=== PATIENT | female | born 1975 | race Caucasian/White ===

== ENCOUNTER → 2017-08-26 | Outpatient (CLI) | payer OTHER ==
[~2017-08-26] MED LIST: ADULT LOW DOSE81 MG PO; AMITRIPTYLINE H10 M3 PO; AMITRIPTYLINE H25 M2 PO; ASPIRIN325 PO; ATIVAN0.5 MG PO; AZTREONAM2 GM IVPB; BENADRYL25 MG PO; CIPRO500 MG PO; COLACE100 MG PO; COUMADIN7.5 MG PO; CRINONE1.45 G1 VG; DITROPAN XL10 M1; DITROPAN XL15 MG PO; ENOXAPARIN80 MG/0.8 SQ; EPIPEN 2-P0.3 MG/0.3 IM; EPIPEN0.3 MG/0.3; FIBERCON625 M1 PO; FLOMAX0.4 MG PO; HYDROCODONE-APA1 TA1 PO; IBUPROFEN 800800 M1 PO; IMITREX 25 MG T25 M1 PO; IMITREX 50 MG T50 MG PO; LOVENOX80 MG/0.8 SQ; MACRODANTIN100 MG; METHOCARBAMOL500 M2 PO; MIRALAX17 GM PO; NITROFURANTOIN50 M2 PO; NORCO 5-325 TA1 EACH PO; ONDANSETRON HCL4 M2 PO; OXYIR5 MG PO; PERCOCET PO; PHENAZOPYRIDIN200 M2 PO; PHENERGAN 25 MG25 M1 PO; PROLOPRIM100 MG PO; PROPANOLOL PO; ROBAXIN500 MG; TESSALON PERLE100 MG PO; TESTOSTERONE; TESTOSTERONE2.5 GM TD; TOPAMAX50 MG PO; TRAMADOL 50 MG50 MG PO; VALIUM5 MG PO; VIVELLE-DOT1 EAC1; VOLTAREN GEL 1100 GM TOP; ZOFRAN ODT4 MG PO; ZOFRAN4 MG PO; [UNRECOGNIZED DRUG - OTHER]
--- NOTE | 2017-08-28 09:59 | PAINCON ---
[address] [address] PAIN MANAGEMENT CONSULTATION Name: JEREMIAH WOODS Room: [facility] JUSTINO Nava#: [id number] Admission: 08/26/17 Attend Phys: Ashlie German Discharge: Date of : 75 Report #: [id number] THIS REPORT FOR: //name// CC: Ajit Leone DATE OF SERVICE: 08/26/2017 HISTORY OF PRESENT ILLNESS: The patient is a very pleasant 41-year-old female being treated for symptomatic cervical radiculopathy. Significant comorbidity includes chronic kidney disease, stage 3, contraindicating nonsteroidal anti-inflammatory medications. The patient has had good relief with epidural injections, 09/24 and 10/08 and 10/22. Symptoms began to recur. She had an injection on 03/18 and again on 04/22. Radicular symptoms improved somewhat, but she is having ongoing daily headaches. I referred her for consideration for Botox injections while she has chronic daily headaches and would be a good candidate for Botox. 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 She does return to the pain clinic today with ongoing right cervical radicular symptoms. Pain in the right neck radiating to the clavicle, pain in the deltoid to the posterior aspect of the upper arm in the triceps area. Subjective weakness in the right arm with a dull ache that is fairly constant in the arm. PHYSICAL EXAMINATION: GENERAL: Shows pleasant 41-year-old female. VITAL SIGNS: BMI is 29 kilograms per meter squared. Blood pressor or pressure 102/71, pulse 69, respirations of 16. MUSCULOSKELETAL: Cervical range of motion is limited with positive Lhermitte's. Upper extremity strength shows decreased right deltoid strength about 3/5, all else is about 4/5. Decreased right hand grasp compared to the left. Tinel's is negative. Deep tendon reflexes are generally preserved, though triceps reflex is difficult to elicit bilaterally. IMAGING: We reviewed her MRI from 09/17/2016, there is a disk desiccation at C5-C6 with a broad based posterior disk bulge and superimposed right paracentral or right lateral recess disk extrusion combination resulting in severe right lateral recess stenosis and moderate right neural foraminal stenosis. ASSESSMENT: Symptomatic cervical radiculopathy, right C6 distribution by clinical exam and history. RECOMMENDATIONS: I had a long [place] [address] PAIN MANAGEMENT CONSULTATION Name: JEREMIAH WOODS [id number] Admission: 08/26/17 Attend Phys: Ashlie German Discharge: Date of : 75 Report #: [id number] therapeutic options. 1. 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 I suspect that they will not allow it as there is still 6-7% systemic absorption and the patient does have tenuous renal function. 2. Cervical epidural injection today to help with ongoing cervical radicular symptoms. 3. We will refer back to Neurosurgery. She had prior seen Dr. Josh Mullen greater than a year ago in consultation. Due to her kidney issues and acute inflammation of the cervical spine, they had elected to postpone interventional therapy. Given that Dr. Mullen is no longer in the [facility], we have elected to refer the patient to [facility] for a second opinion regarding surgery. ASSESSMENT: Symptomatic cervical radiculopathy. PROCEDURE: Cervical epidural steroid injection under fluoroscopy. PROCEDURE NOTE: After written and informed consent was obtained including risk of dural puncture, spinal cord trauma, paralysis and increased pain, the patient was taken to the fluoroscopy suite and placed in the prone position, with appropriate abdominal bolstering, neck was flexed, palms under the thighs. Skin was prepped with ChloraPrep. Sterile draping was applied. Skin wheal with 1% Xylocaine was raised. A 22-gauge 3-1/2 inch epidural Tuohy needle was placed via a midline approach at the C7-T1 interspace, advanced under biplanar fluoroscopy using continuous loss of resistance. With appropriate loss of resistance at the expected depth on lateral view, the glass loss of resistance syringe was disconnected. A low volume extension tubing was connected to the needle and a 5 mL syringe. Negative aspiration for cerebrospinal fluid or blood was noted. A 1 mL of Omnipaque was injected which showed spread within the epidural space on biplanar fluoroscopy. This was followed with 80 mg of triamcinolone plus 1 mL of 1.5% preservative Xylocaine. Needle was withdrawn to the interspinous ligament, 0.5 mL of Xylocaine was used to flush the needle. The needle was then completely withdrawn. The area was cleansed. Band-Aid was applied. The patient was allowed to move off the procedure table and ambulated to the recovery room, monitored for an appropriate period of time, discharged in good and stable condition. Follow up in 4 weeks for reevaluation. <ELECTRONICALLY SIGNED> By: Mane Leone DO 08/28/17 0959 1310 0059Mane Leone DO /bia
== END | disposition home or self-care (01) ==
LOC: M.PC 02:36
DX: M54.12 Radiculopathy, cervical region (principal); N18.3 Chronic kidney disease, stage 3 (moderate); Z88.2 Allergy status to sulfonamides; Z88.0 Allergy status to penicillin; Z88.8 Allergy status to other drugs, medicaments and biological substances

== ENCOUNTER → 2017-09-08 | Outpatient (CLI) | payer OTHER ==
[2017-09-08 15:16] LABS: ALBUMIN 3.8 g/dL (3.4-5.0); CALCIUM 8.7 mg/dL (8.5-10.1); CREATININE 1.3 mg/dL (0.6-1.3); POTASSIUM 3.7 mmol/L (3.5-5.1); TOTAL BILIRUBIN 0.4 mg/dL (<0.1-1.0); TOTAL PROTEIN 7.4 g/dL (6.4-8.2)
== END ==
LOC: M.CT 14:28
PROVIDERS: General Practice
DX: N10 Acute pyelonephritis (principal); R79.89 Other specified abnormal findings of blood chemistry

== ENCOUNTER 2017-09-11 12:33 | Inpatient (IN) | payer OTHER ==
[~2017-09-11] VITALS: Ht 167.6 cm; Wt 84.8 kg
[~2017-09-11 12:33] MED LIST changes: -AZTREONAM2 GM IVPB; -PERCOCET PO; -TESSALON PERLE100 MG PO; -ZOFRAN ODT4 MG PO
[2017-09-11 13:12] VITALS: BP 135/87
[2017-09-11] MEDS ORDERED: CIPRO500 MG PO (13:15)
[2017-09-11] MEDS ORDERED: TRAMADOL 50 MG50 MG PO (13:15)
[2017-09-11 13:39] LABS: URINE BILIRUBIN NEGATIVE (Negative); URINE BLOOD 1+ (Negative); URINE CLARITY CLEAR; URINE COLOR YELLOW; URINE GLUCOSE-RANDOM NEGATIVE (Negative); URINE KETONES NEGATIVE (Negative); URINE LEUKOCYTES-REFLEX TRACE (Negative); URINE NITRITE-REFLEX NEGATIVE (Negative); URINE PROTEIN NEGATIVE (Negative); URINE UROBILINOGEN 0.2 E.U./dl (0.2-1.0)
[2017-09-11 13:42] LABS: ABSOLUTE BASOPHILS 0.1 thou/uL (0.0-0.2); ABSOLUTE EOSINOPHILS 0.1 thou/uL (0.0-0.7); ABSOLUTE LYMPHOCYTES 1.6 thou/uL (0.8-5.3); ABSOLUTE MONOCYTES 0.5 thou/uL (0.0-1.2); ABSOLUTE NEUTROPHILS 8.5 thou/uL (1.6-8.1); EOSINOPHILS 0.9 %; HEMATOCRIT 42.5 % (37.0-47.0); HEMOGLOBIN 14.1 gm/dL (12.0-15.0); LYMPHOCYTES 14.8 %; MCH 30.1 pg (26.0-34.0); MCHC 33.2 g/dL (28.0-37.0); MCV 90.6 fL (80.0-100.0); MONOCYTES 4.9 %; MPV 7.7 fl. (7.2-11.1); NUCLEATED RBCS 0 /100WBC; PLATELET COUNT* 325 thou/uL (150-400); POLYS 78.4 %; RBC 4.68 mil/uL (4.20-5.00); WBC 10.8 thou/uL (4.0-11.0)
[2017-09-11 13:51] LABS: CASTS None Seen /LPF (None Seen); CRYSTALS None Seen /LPF (None Seen); MUCUS None Seen strn/LPF (None Seen); SQUAMOUS 4-10 Moderate /LPF (0-3); URINE RBC 3-10 Few /HPF (0-2); URINE WBC-REFLEX 6-15 Few /HPF (0-5)
[2017-09-11 13:59] LABS: ANION GAP 6 mmol/L (7-16); BUN 22 mg/dL (7-18); CALCIUM 8.5 mg/dL (8.5-10.1); CHLORIDE 104 mmol/L (98-107); CO2 30 mmol/L (21-32); CREATININE 1.4 mg/dL (0.6-1.3); GLUCOSE 105 mg/dL (70-99); POTASSIUM 3.7 mmol/L (3.5-5.1); SODIUM 140 mmol/L (136-145)
[2017-09-11 14:06] LABS: ALBUMIN 3.9 g/dL (3.4-5.0); ALKALINE PHOSPHATASE 60 U/L (46-116); LIPASE 325 U/L (73-393); SGOT 19 U/L (15-37); SGPT 27 U/L (30-65); TOTAL BILIRUBIN 0.5 mg/dL (<0.1-1.0); TOTAL PROTEIN 7.6 g/dL (6.4-8.2); TROPONIN-I LEVEL <0.06 ng/mL (<0.06)
[2017-09-11 15:21] VITALS: BP 111/63
[2017-09-11 16:00] VITALS: BP 128/85
[2017-09-11 20:00] VITALS: BP 107/66
[2017-09-12 00:19] VITALS: BP 111/63
[2017-09-12 07:09] LABS: HEMATOCRIT 41.1 % (37.0-47.0); HEMOGLOBIN 13.6 gm/dL (12.0-15.0); MCH 29.9 pg (26.0-34.0); MCV 90.6 fL (80.0-100.0); MPV 7.5 fl. (7.2-11.1); RBC 4.54 mil/uL (4.20-5.00); WBC 6.1 thou/uL (4.0-11.0)
[2017-09-12 07:15] LABS: CALCIUM 8.3 mg/dL (8.5-10.1); CREATININE 1.3 mg/dL (0.6-1.3); MAGNESIUM 2.2 mg/dL (1.8-2.4); POTASSIUM 4.3 mmol/L (3.5-5.1)
[2017-09-12 08:00] VITALS: BP 98/64
[2017-09-12 20:10] VITALS: BP 97/55
[2017-09-13 00:13] VITALS: BP 96/55
[2017-09-13 08:00] VITALS: BP 104/65
--- NOTE | 2017-09-13 10:00 | CON ---
[address] [address] CONSULTATION Name: JEREMIAH WOODS Room: [address] M.R.#: [id number] Admission: 09/11/17 Attend Phys: Ken Tao MD Discharge: Date of : 75 Report #: [id number] THIS REPORT FOR: //name// CC: Ken Rapp DATE OF SERVICE: 09/12/2017 INFECTIOUS DISEASE CONSULTATION ATTENDING PHYSICIAN: Dr. Tao REASON FOR EVALUATION: Complicated urinary tract infection refractory to outpatient therapy, also has 1-2 week history of respiratory tract symptoms primarily nonproductive cough associated pharyngitis. HISTORY OF PRESENT ILLNESS: Chart reviewed, the patient examined. 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 She had ongoing issues with complicated urinary tract infections. She developed right-sided flank pain over the course of the last 8-10 days prior to admission, was evaluated and felt to have a urinary tract infection. This was in association with respiratory tract illness, which preceded this with sore throat, rhinorrhea, congestion and headache. On at least 2 occasions had nasopharyngeal swabs negative for influenza A and B. She was started on Cipro and treated for several days without improvement. It is notable she has multiple drug hypersensitivities including type 1 particularly to beta-lactams, I believe. Also, trimethoprim sulfa. On admission, was found to have temperature elevation. She was given a dose of gentamicin. Overall, she feels marginally better today, still has right flank pain, persistent cough and marginal p.o. intake. ALLERGIES: NOTED ABOVE IN ADDITION TO THE PENICILLIN, CEPHALOSPORINS, SULFA, NONSTEROIDALS, CYCLOBENZAPRINE, HYDROMORPHONE, OXYCODONE, MEPERIDINE AND VANCOMYCIN. CURRENT MEDICATIONS: Include enoxaparin, promethazine as needed, tramadol, fentanyl, given a dose of gentamicin and a single dose of IV ciprofloxacin. PAST MEDICAL HISTORY: As described above, has previous nephrectomy in 12/2015, hysterectomy, oophorectomy, appendectomy. SOCIAL HISTORY: Nonsmoker, no ethanol. FAMILY HISTORY: [place] [address] CONSULTATION Name: MARRYPADMINIJEREMIAH J Room: [address]#: [id number] Admission: 09/11/17 Attend Phys: Ken Tao MD Discharge: Date of : 75 Report #: [id number] REVIEW OF SYSTEMS: As above. PHYSICAL EXAMINATION: GENERAL: She appears ill, not overtly toxic. She does have paroxysms of coughing that are nonproductive during the evaluation. She is not encephalopathic. VITAL SIGNS: Temperature 98.4, pulse 64, respirations 14, blood pressure 98/64. SKIN: Warm. No appreciated rashes. HEENT: Otherwise, unremarkable. NECK: Supple. LUNGS: Somewhat diminished overall, a few crackles at the bases. HEART: Regular. I do not appreciate a murmur. ABDOMEN: Generally soft. There are no overt peritoneal signs. Does have palpable right flank tenderness. GENITOURINARY: Deferred. RECTAL: Deferred. LABORATORY DATA: Blood cultures sterile thus far. Urine culture is pending. Lactic acid is 0.4. Electrolytes: Sodium 143, potassium 4.3, chloride 106, bicarbonate is 30, BUN and creatinine 15 and 1.3, glucose of 93. Estimated GFR of 45. White count 6.1, H and H 13.6 and 41.1, platelets of 268. Sodium 140, potassium 3.7, chloride 104, bicarbonate is 30 on admission. Lipase of 325. LFTs unremarkable. Albumin of 39, total protein 7.6. Urinalysis showed 6-15 white cells, no casts, 10-30 bacteria. ASSESSMENT: Complicated urinary tract infection. The patient has multiple antibiotic hypersensitivities. We will empirically dose at this point, await culture results. At this point, she is not overtly unstable. We will go ahead and get a chest x-ray as well. Discussed these issues. Suspect it is probably viral, although I cannot be certain. We will check a respiratory viral panel. Discussed with the patient who voices understanding. <ELECTRONICALLY SIGNED> By: Mitch Guzman MD 09/13/17 1000 [id number] 0049Mitch Guzman MD /nt
[2017-09-13 20:00] VITALS: BP 115/63
[2017-09-14 00:15] VITALS: BP 104/66
[2017-09-14 08:30] VITALS: BP 110/75
[2017-09-14 17:30] VITALS: BP 109/67
[2017-09-14 20:00] VITALS: BP 120/68
[2017-09-15 04:27] VITALS: BP 102/61
[2017-09-15 08:10] VITALS: BP 107/70
[2017-09-15 14:47] LABS: URINE BILIRUBIN NEGATIVE (Negative); URINE BLOOD TRACE (Negative); URINE CLARITY CLEAR; URINE COLOR STRAW; URINE GLUCOSE-RANDOM NEGATIVE (Negative); URINE KETONES NEGATIVE (Negative); URINE LEUKOCYTES-REFLEX NEGATIVE (Negative); URINE NITRITE-REFLEX NEGATIVE (Negative); URINE PROTEIN NEGATIVE (Negative); URINE SPECIFIC GRAVITY <= 1.005 (1.005-1.030); URINE UROBILINOGEN 0.2 E.U./dl (0.2-1.0)
[2017-09-15 16:16] VITALS: BP 106/56
[2017-09-15 19:47] VITALS: BP 106/56
[2017-09-15 20:00] VITALS: BP 109/69
[2017-09-16] VITALS: BP 106/66
[2017-09-16 02:06] LABS: ADENOVIRUS Negative (Negative); INFLUENZA A Negative (Negative); INFLUENZA B Negative (Negative); METAPNEUMOVIRUS Negative (Negative); PARAINFLUENZA 1 Negative (Negative); PARAINFLUENZA 2 Negative (Negative); PARAINFLUENZA 3 Negative (Negative); RHINOVIRUS Negative (Negative); RSV A Negative (Negative); RSV B Negative (Negative)
[2017-09-16 04:00] VITALS: BP 106/66
[2017-09-16 07:30] VITALS: BP 159/92
[2017-09-16 08:27] LABS: HEMATOCRIT 37.4 % (37.0-47.0); HEMOGLOBIN 12.4 gm/dL (12.0-15.0); MCH 30.4 pg (26.0-34.0); MCHC 33.1 g/dL (28.0-37.0); MCV 91.9 fL (80.0-100.0); MPV 8.4 fl. (7.2-11.1); RBC 4.07 mil/uL (4.20-5.00); RDW-CV 14.2 % (10.5-14.5); WBC 5.6 thou/uL (4.0-11.0)
[2017-09-16 08:28] LABS: CALCIUM 8.2 mg/dL (8.5-10.1); CREATININE 1.4 mg/dL (0.6-1.3)
[2017-09-16 12:00] VITALS: BP 114/92
[2017-09-16] MEDS ORDERED: TESSALON PERLE100 MG PO (13:14)
[2017-09-16] MEDS ORDERED: ZOFRAN ODT4 MG PO (13:14)
[2017-09-16] MEDS ORDERED: TRAMADOL 50 MG50 MG PO (13:14)
[2017-09-16] MEDS ORDERED: PHENERGAN 25 MG25 M1 PO (13:14)
[2017-09-16 13:35] VITALS: BP 106/56
[2017-09-16] MEDS ORDERED: PERCOCET PO (14:10)
[2017-09-16] MEDS ORDERED: AZTREONAM2 GM IVPB (14:18)
== END 2017-09-16 15:27 | disposition home or self-care (01) | DRG 690 ==
LOC: M.ERS 12:33 → M.TBA-ER 14:49 → M.2W 14:49
PROVIDERS: Emergency Medicine Emergency Medical Services; Internal Medicine; Specialist; ADMIT Internal Medicine
PROC: B5181ZA Fluoroscopy of Superior Vena Cava using Low Osmolar Contrast, Guidance (ICD-10-PCS; principal; 2017-09-15)
PROC: B548ZZA Ultrasonography of Superior Vena Cava, Guidance (ICD-10-PCS; principal; 2017-09-15)
PROC: 02HV33Z Insertion of Infusion Device into Superior Vena Cava, Percutaneous Approach (ICD-10-PCS; principal; 2017-09-15)
DX: N12 Tubulo-interstitial nephritis, not specified as acute or chronic (principal); N18.3 Chronic kidney disease, stage 3 (moderate); J06.9 Acute upper respiratory infection, unspecified; Z90.5 Acquired absence of kidney; Z86.711 Personal history of pulmonary embolism; Z90.49 Acquired absence of other specified parts of digestive tract; Z90.710 Acquired absence of both cervix and uterus; Z88.6 Allergy status to analgesic agent; Z88.1 Allergy status to other antibiotic agents; Z88.8 Allergy status to other drugs, medicaments and biological substances; Z79.899 Other long term (current) drug therapy; Z90.721 Acquired absence of ovaries, unilateral

== ENCOUNTER → 2017-09-25 | Outpatient (CLI) | payer OTHER ==
[~2017-09-25] MED LIST changes: +AZTREONAM2 GM IVPB; +PERCOCET PO; +TESSALON PERLE100 MG PO; +ZOFRAN ODT4 MG PO
[2017-09-25 10:11] LABS: URINE BILIRUBIN NEGATIVE (Negative); URINE BLOOD 1+ (Negative); URINE CLARITY CLEAR; URINE COLOR YELLOW; URINE GLUCOSE-RANDOM NEGATIVE (Negative); URINE KETONES NEGATIVE (Negative); URINE LEUKOCYTES-REFLEX NEGATIVE (Negative); URINE NITRITE-REFLEX NEGATIVE (Negative); URINE PROTEIN NEGATIVE (Negative); URINE SPECIFIC GRAVITY <= 1.005 (1.005-1.030); URINE UROBILINOGEN 0.2 E.U./dl (0.2-1.0)
[2017-09-25 10:19] LABS: BACTERIA-REFLEX 1-9 Few /HPF (None Seen); CASTS None Seen /LPF (None Seen); CRYSTALS None Seen /LPF (None Seen); MUCUS 0-3 Light strn/LPF (None Seen); SQUAMOUS 0-3 Few /LPF (0-3); URINE RBC 3-10 Few /HPF (0-2); URINE WBC-REFLEX 0-5 Rare /HPF (0-5)
== END ==
LOC: M.LAB 10:04
PROVIDERS: Specialist
DX: N39.0 Urinary tract infection, site not specified (principal)

== ENCOUNTER → 2017-10-02 | Outpatient (CLI) | payer OTHER | LOC: M.LAB 11:35 | DX: N39.0 Urinary tract infection, site not specified (principal) ==

== ENCOUNTER → 2017-10-09 | Outpatient (CLI) | payer OTHER ==
[2017-10-09 09:55] LABS: HEMATOCRIT 40.3 % (37.0-47.0); HEMOGLOBIN 13.5 gm/dL (12.0-15.0); MCH 30.3 pg (26.0-34.0); MCHC 33.5 g/dL (28.0-37.0); MCV 90.7 fL (80.0-100.0); MPV 7.5 fl. (7.2-11.1); RBC 4.45 mil/uL (4.20-5.00); RDW-CV 14.6 % (10.5-14.5); WBC 6.1 thou/uL (4.0-11.0)
[2017-10-09 10:03] LABS: CALCIUM 8.9 mg/dL (8.5-10.1); CREATININE 1.4 mg/dL (0.6-1.3); POTASSIUM 4.5 mmol/L (3.5-5.1)
[2017-10-09 10:08] LABS: ALBUMIN 3.5 g/dL (3.4-5.0); TOTAL BILIRUBIN 0.2 mg/dL (<0.1-1.0); TOTAL PROTEIN 7.5 g/dL (6.4-8.2)
== END ==
LOC: M.LAB 08:30 → M.CT 09:30
PROVIDERS: Specialist
DX: N39.0 Urinary tract infection, site not specified (principal); N28.89 Other specified disorders of kidney and ureter; K42.9 Umbilical hernia without obstruction or gangrene; Z90.5 Acquired absence of kidney; Z16.35 Resistance to multiple antimicrobial drugs

== ENCOUNTER → 2017-11-03 | Outpatient (CLI) | payer OTHER ==
[2017-11-03 18:53] LABS: URINE BILIRUBIN NEGATIVE (Negative); URINE BLOOD 1+ (Negative); URINE CLARITY CLEAR; URINE COLOR STRAW; URINE GLUCOSE-RANDOM NEGATIVE (Negative); URINE KETONES NEGATIVE (Negative); URINE LEUKOCYTES NEGATIVE (Negative); URINE NITRITE NEGATIVE (Negative); URINE PROTEIN NEGATIVE (Negative); URINE SPECIFIC GRAVITY <= 1.005 (1.005-1.030); URINE UROBILINOGEN 0.2 E.U./dl (0.2-1.0)
[2017-11-03 19:06] LABS: BACTERIA None Seen /HPF (None Seen); CASTS None Seen /LPF (None Seen); MUCUS None Seen strn/LPF (None Seen); SQUAMOUS 0-3 Few /LPF (0-3); URINE RBC 0-2 Rare /HPF (0-2); URINE WBC None Seen /HPF (0-5)
[2017-11-03 19:07] LABS: CRYSTALS None Seen /LPF (None Seen)
== END ==
LOC: M.LAB 18:24
PROVIDERS: Specialist
DX: N39.0 Urinary tract infection, site not specified (principal)

== ENCOUNTER → 2017-11-23 | Outpatient (CLI) | payer OTHER | END | disposition home or self-care (01) | LOC: M.INT 10:54 | DX: Z45.2 Encounter for adjustment and management of vascular access device (principal); Z87.440 Personal history of urinary (tract) infections; Z87.09 Personal history of other diseases of the respiratory system; Z88.2 Allergy status to sulfonamides; Z88.0 Allergy status to penicillin; Z79.899 Other long term (current) drug therapy; Z79.891 Long term (current) use of opiate analgesic ==

== ENCOUNTER → 2017-12-03 | Outpatient (CLI) | payer OTHER ==
[2017-12-03 12:48] VITALS: BP 129/79
--- NOTE | 2017-12-28 12:50 | CARD ---
[address] [address] CARDIAC CATH REPORT Name: JEREMIAH WOODS [id number] Admission: 12/03/17 Attend Phys: Mayco Snow MD Discharge: Date of : 75 Report #: [id number] THIS REPORT FOR: //name// CC: Mayco Rapp PROCEDURE: Explantation of an implanted loop recorder. DESCRIPTION OF PROCEDURE: After informed consent was obtained, the patient was brought to the cardiac catheterization area. The chest wall was prepped and draped in sterile fashion. The location of the implanted loop recorder was determined by palpation. Local anesthesia was achieved with 1% lidocaine. An incision was made at the base of the loop recorder. The loop recorder was secured with a Melissa forceps and through the incision. Incision was then sealed with Dermabond. The patient tolerated the procedure well without complication. IMPRESSION: 1. Loop recorder in place for cardiac monitoring. 2. Successful explantation of implanted loop recorder without complications. <ELECTRONICALLY SIGNED> By: Mayco Snow MD, [facility] 12/28/17 1250 1805 0633[facility] Centerterry Snow MD, FACC /nt
== END | disposition home or self-care (01) ==
LOC: M.CL 12:38
DX: Z45.09 Encounter for adjustment and management of other cardiac device (principal); Z98.890 Other specified postprocedural states; Z79.899 Other long term (current) drug therapy; Z87.440 Personal history of urinary (tract) infections; Z88.2 Allergy status to sulfonamides; Z88.0 Allergy status to penicillin; Z79.891 Long term (current) use of opiate analgesic; Z90.710 Acquired absence of both cervix and uterus; Z90.49 Acquired absence of other specified parts of digestive tract; Z90.5 Acquired absence of kidney

== ENCOUNTER → 2018-01-05 | Outpatient (CLI) | payer OTHER ==
[2018-01-05 10:58] LABS: ABSOLUTE EOSINOPHILS 0.1 thou/uL (0.0-0.7); ABSOLUTE LYMPHOCYTES 1.4 thou/uL (0.8-5.3); ABSOLUTE MONOCYTES 0.5 thou/uL (0.0-1.2); ABSOLUTE NEUTROPHILS 3.3 thou/uL (1.6-8.1); BASOPHILS 0.7 %; EOSINOPHILS 1.4 %; HEMATOCRIT 41.7 % (37.0-47.0); HEMOGLOBIN 13.8 gm/dL (12.0-15.0); LYMPHOCYTES 26.2 %; MCH 30.1 pg (26.0-34.0); MCHC 33.1 g/dL (28.0-37.0); MCV 90.8 fL (80.0-100.0); MONOCYTES 8.9 %; MPV 7.9 fl. (7.2-11.1); NUCLEATED RBCS 0 /100WBC; PLATELET COUNT* 295 thou/uL (150-400); POLYS 62.8 %; RBC 4.59 mil/uL (4.20-5.00); RDW-CV 12.8 % (10.5-14.5); WBC 5.2 thou/uL (4.0-11.0)
[2018-01-05 17:09] LABS: TESTOSTERONE 137 ng/dL (8-48)
[2018-01-07 09:11] LABS: ANA INTERPRETATION Negative (Negative)
[2018-01-07 10:07] LABS: M-SPIKE Not Observed g/dL (Not Observed)
[2018-01-07 17:11] LABS: URINE PROTEIN (MG/DL) 4.5 mg/dL (Not Estab.)
== END ==
LOC: M.LAB 10:35
PROVIDERS: Obstetrics & Gynecology
DX: N95.1 Menopausal and female climacteric states (principal); R31.9 Hematuria, unspecified; R68.82 Decreased libido

== ENCOUNTER → 2018-01-12 | Outpatient (CLI) | payer OTHER ==
[2018-01-12 10:08] LABS: URINE BILIRUBIN NEGATIVE (Negative); URINE BLOOD 3+ (Negative); URINE CLARITY CLEAR; URINE COLOR YELLOW; URINE GLUCOSE-RANDOM NEGATIVE (Negative); URINE KETONES NEGATIVE (Negative); URINE LEUKOCYTES NEGATIVE (Negative); URINE NITRITE NEGATIVE (Negative); URINE PROTEIN NEGATIVE (Negative); URINE SPECIFIC GRAVITY <= 1.005 (1.005-1.030); URINE UROBILINOGEN 0.2 E.U./dl (0.2-1.0)
[2018-01-12 10:19] LABS: BACTERIA None Seen /HPF (None Seen); CASTS None Seen /LPF (None Seen); CRYSTALS None Seen /LPF (None Seen); MUCUS None Seen strn/LPF (None Seen); SQUAMOUS 0-3 Few /LPF (0-3); URINE WBC 0-5 Rare /HPF (0-5)
== END ==
LOC: M.LAB 09:56 → EDSTATUS 10:02 → M.LAB 10:02
PROVIDERS: Specialist
DX: R06.02 Shortness of breath (principal); R50.9 Fever, unspecified; R05 Cough

== ENCOUNTER → 2018-01-26 | Outpatient (CLI) | payer OTHER | LOC: M.RAD 13:59 | DX: Z12.31 Encounter for screening mammogram for malignant neoplasm of breast (principal) ==

== ENCOUNTER → 2018-05-07 | Outpatient (CLI) | payer OTHER ==
[2018-05-07 15:56] LABS: CREATININE 1.5 mg/dL (0.6-1.3)
== END ==
LOC: M.LAB 15:34
PROVIDERS: Nurse Practitioner Family
DX: M47.22 Other spondylosis with radiculopathy, cervical region (principal); R30.0 Dysuria; R10.9 Unspecified abdominal pain; Z79.899 Other long term (current) drug therapy

== ENCOUNTER → 2020-05-03 | Outpatient (CLI) | payer OTHER | LOC: M.MRI 13:30 | PROVIDERS: ATTEND Physical Medicine & Rehabilitation Sports Medicine | DX: M50.122 Cervical disc disorder at C5-C6 level with radiculopathy (principal); M47.22 Other spondylosis with radiculopathy, cervical region; M48.02 Spinal stenosis, cervical region ==

== ENCOUNTER → 2020-06-28 | Outpatient (CLI) | payer OTHER ==
--- NOTE | 2020-07-19 14:42 | PAINCON ---
[address] [address] PAIN MANAGEMENT CONSULTATION Name: JEREMIAH WOODS [facility] [id number] Admission: 06/28/20 Attend Phys: Keenan Lei MD Discharge: Date of : 75 Report #: [id number] THIS REPORT FOR: //name// cc: Mayco Carrera MD, Michael MD ~ CC: Mayco Lei DATE OF SERVICE: 06/28/2020 CHIEF COMPLAINT: Cervical pain. HISTORY: The patient is a 44-year-old female who has been referred to the Pain Clinic for evaluation. The patient has had surgery in the past. She was injured in 08/2016. She had a lifting and twisting injury and felt a popping sensation in her scapula. She has pain in the occipital area in the right ____ area with pain down to the right shoulder, hand and index finger and paresthesias in the ring and fifth fingers as well. The patient has undergone treatment with physical therapy in the past. She has tried other modalities including traction. Has had stage 3 chronic renal insufficiency and has been unable to take nonsteroidal anti-inflammatory medications. She has returned because of pain in the neck area. States that she has some herniated problems in C4-C5 and C5-C6. She would like to undergo a cervical epidural steroid injection. She is having pain that is radiating down the right side into her arm and involving her fingers. Describes the pain as constant with numbing and tingling sensation. She has had cervical epidural steroid injections in the past and found them beneficial. Notes that lifting and other activities of daily living can worsen her pain and discomfort. Has found that ice and medications are beneficial as well. Today, her pain is a 6/10 with a burning, shooting, cramping, throbbing, sharp, stabbing and discomfort. ALLERGIES: CEPHALOSPORINS, MEPERIDINE, MORPHINE, OXYCODONE, PENICILLIN, SULFA, TAPE, VANCOMYCIN, CYCLOBENZAPRINE, DILAUDID AND NONSTEROIDAL ANTI-INFLAMMATORY MEDICATIONS. PAST MEDICAL HISTORY: Acute renal failure, acute chest pain, dizziness, pyelonephritis, history of urinary tract infections, hydronephrosis or hydroureter. PAST SURGICAL HISTORY: Left nephrectomy, renal vein entrapment, failed stenting, hysterectomy 2001, appendectomy 2007, venous embolism ____ 2009, renal vein transplant 2009, ureteral stents, and nephrectomy 12/2015. 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 REVIEW OF SYSTEMS: Generally good health, weight changes, headaches, [place] [address] PAIN MANAGEMENT CONSULTATION Name: JEREMIAH WOODS Romana Room: [facility]#: [id number] Admission: 06/28/20 Attend Phys: Keenan Lei MD Discharge: Date of : 75 Report #: [id number] glasses, joint pain, weakness of muscles, muscle pain, back pain, recurrent headaches, numbness and tingling sensation and past transfusions. LABORATORY DATA: No new laboratory values available at the time of our interview. PAIN CLINIC ASSESSMENT AND PQRS: 1. History of osteoarthritis involving the neck for C4-C5, C5-C6 area. 2. Height 5 feet 6 inches, weight 174 pounds, BMI is 28.2. 3. Vital signs: Blood pressure 109/69, heart rate 63, respiratory rate 16, room air saturations 100%, and temperature 98.5. 4. Pain intensity 01/24. 5. Fall risk. The patient has not fallen in the last 3 months. 6. Blood thinner. The patient is not on a blood thinning medication. 7. Hypertension. The patient is not being treated for hypertension. 8. Opioids. The patient is not on her opioid regimen. 9. Risk assessment tool, low for opioid use. 10. Functional assessment tool reviewed. 11. Recreational drug use: The patient denies. 12. Tobacco: The patient denies. 13. Alcohol: The patient denies frequent use of alcohol. PHYSICAL EXAMINATION: GENERAL: The patient is a well-developed, well-nourished white female. Appears her stated age. She is alert and oriented x 3. Her affect is appropriate. Speech is fluent. HEENT: Normocephalic, atraumatic. Extraocular eye muscles intact. The patient has some pain and discomfort in her neck with pain radiating down the right side in the arm with numbness and tingling in her fingers. HEART: Regular. LUNGS: Clear. ABDOMEN: Nontender. EXTREMITIES: Upper extremity muscle strength judged to be 5-/5 on the left side and the patient notes some weakness on the right side with pain radiating down into her arm and fingers. Lower extremity muscle strength judged to be 5/5 for the major muscle groups in the lower extremity. IMPRESSION: 1. Cervical radiculopathy. 2. History of left renal entrapment with nephrectomy. 3. Multiple antibiotic allergies. 4. History of pulmonary embolism. 5. Chronic renal disease. RECOMMENDATIONS: We discussed treatment options with the patient. We will proceed with a cervical epidural steroid injection. Risks [place] [address] PAIN MANAGEMENT CONSULTATION Name: JEREMIAH WOODS Room: [facility] Brandy#: [id number] Admission: 06/28/20 Attend Phys: Keenan Lei MD Discharge: Date of : 75 Report #: [id number] procedure were discussed. They include but are not limited to infection, worsening pain, no improvement in pain, nerve damage, bleeding, and the patient elects to proceed. The COVID-19 is pandemic. Steroids can decrease one's ability to mount a reaction to COVID. Should the patient become infected, she may have a more difficult time with this virus. We have discussed the risk and she elects to proceed. PROCEDURE NOTE: The patient was taken to the procedure area. She was then assisted in getting on the examination table. A pillow was placed under her shoulders. Her neck was sterilely prepped with a Betadine solution. A 0.25% bupivacaine was then allowed to dry. A 25-gauge needle was used to anesthetize the area. A 17-gauge Tuohy with loss of resistance technique was used to gain access to the epidural space. There was no CSF, heme or paresthesia. A total of 120 mg triamcinolone was injected. The patient tolerated the procedure well. There were no complications. She remained in the Pain Clinic for an appropriate amount of time. She will follow up in the future as needed. We would like to thank you for letting us participate in her care. We hope she continues to improve. <ELECTRONICALLY SIGNED> By: Keenan Lei MD 07/19/20 1442 2113 0705N. MD nae Piper
== END | disposition home or self-care (01) ==
LOC: M.PC 13:00
PROVIDERS: ATTEND Anesthesiology Pain Medicine
DX: M54.2 Cervicalgia (principal); M54.12 Radiculopathy, cervical region; I12.9 Hypertensive chronic kidney disease with stage 1 through stage 4 chronic kidney disease, or unspecified chronic kidney disease; N18.9 Chronic kidney disease, unspecified; Z79.899 Other long term (current) drug therapy; Z98.890 Other specified postprocedural states; Z88.0 Allergy status to penicillin; Z88.1 Allergy status to other antibiotic agents

== ENCOUNTER → 2020-07-26 | Outpatient (CLI) | payer OTHER | END | disposition home or self-care (01) | LOC: M.PC 12:32 | PROVIDERS: ATTEND Anesthesiology Pain Medicine | DX: M54.12 Radiculopathy, cervical region (principal); G89.29 Other chronic pain; N18.6 End stage renal disease; Z98.890 Other specified postprocedural states; Z90.710 Acquired absence of both cervix and uterus; Z79.899 Other long term (current) drug therapy; Z90.5 Acquired absence of kidney; Z86.711 Personal history of pulmonary embolism; Z79.01 Long term (current) use of anticoagulants ==

== ENCOUNTER → 2020-10-09 | Outpatient (CLI) | payer OTHER | END | disposition home or self-care (01) | LOC: M.PC 10-02 08:30 | PROVIDERS: ATTEND Anesthesiology Pain Medicine | DX: M54.12 Radiculopathy, cervical region (principal); G89.29 Other chronic pain; N18.9 Chronic kidney disease, unspecified; Z98.890 Other specified postprocedural states; Z79.899 Other long term (current) drug therapy; Z86.711 Personal history of pulmonary embolism; Z79.01 Long term (current) use of anticoagulants; Z88.1 Allergy status to other antibiotic agents; Z90.49 Acquired absence of other specified parts of digestive tract; Z88.2 Allergy status to sulfonamides ==

== ENCOUNTER → 2021-02-21 | Outpatient (CLI) | payer OTHER ==
[~2021-02-21] MED LIST changes: +AMLODIPINE BESY10 MG PO; +BELBUCA150 MCG PO; +HYDROCHLOROTHIA25 M1 PO; +LOPRESSOR50 MG PO
== END ==
LOC: M.PC 02-14 08:50
PROVIDERS: ATTEND Anesthesiology Pain Medicine
DX: M54.12 Radiculopathy, cervical region (principal); I16.9 Hypertensive crisis, unspecified; I12.9 Hypertensive chronic kidney disease with stage 1 through stage 4 chronic kidney disease, or unspecified chronic kidney disease; N18.9 Chronic kidney disease, unspecified; Z90.5 Acquired absence of kidney; Z90.49 Acquired absence of other specified parts of digestive tract; Z90.710 Acquired absence of both cervix and uterus; Z68.28 Body mass index [BMI] 28.0-28.9, adult; Z88.2 Allergy status to sulfonamides; Z88.1 Allergy status to other antibiotic agents; Z88.5 Allergy status to narcotic agent; Z88.0 Allergy status to penicillin; Z88.8 Allergy status to other drugs, medicaments and biological substances; Z79.891 Long term (current) use of opiate analgesic; Z79.899 Other long term (current) drug therapy; Z86.718 Personal history of other venous thrombosis and embolism